=== PATIENT | female | born 1945 | race Hispanic/Latino ===

== ENCOUNTER 2022-05-04 21:01 | Emergency (ER) | payer BC ==
[~2022-05-04] VITALS: Ht 157.5 cm; Wt 68.9 kg
[~2022-05-04 21:01] MED LIST: CLONIDINE PATCH; DIOVAN HCT 3201 EAC1 PO; METOPROLOL SUC100 MG PO; ULTRAM50 MG PO; [UNRECOGNIZED DRUG - OTHER] TD
[2022-05-04] MEDS ORDERED: DIATRIZOATE MEGL/DIATRIZOA SOD 30 ML BTL PO ONE (22:43)
== END 2022-05-04 22:45 | disposition home or self-care (01) ==
LOC: UNMERGE 21:09 → ER 21:09 → MERGE 21:09 → ER 22:45
DX: Z43.1 Encounter for attention to gastrostomy (principal); I10 Essential (primary) hypertension; Z85.89 Personal history of malignant neoplasm of other organs and systems
CPT/HCPCS: 43762; 74018; 99283; Q9963

== ENCOUNTER 2022-05-05 15:04 | Emergency (ER) | payer BC ==
[~2022-05-05] VITALS: Ht 157.5 cm; Wt 68.9 kg
[2022-05-05] MEDS ORDERED: DIATRIZOATE MEGL/DIATRIZOA SOD 30 ML BTL PO ONE (16:02)
[2022-05-05 17:26] VITALS: BP 101/51
== END 2022-05-05 17:27 | disposition home or self-care (01) ==
LOC: MERGE 15:14 → UNMERGE 15:14 → ER 15:14
DX: Z43.1 Encounter for attention to gastrostomy (principal); I10 Essential (primary) hypertension; Z85.89 Personal history of malignant neoplasm of other organs and systems
CPT/HCPCS: 43762; 74018; 99283; Q9963

== ENCOUNTER 2022-06-17 12:55 | Emergency (ER) | payer BC ==
[~2022-06-17] VITALS: Ht 157.5 cm; Wt 68.9 kg
[2022-06-17] MEDS ORDERED: DIATRIZOATE MEGL/DIATRIZOA SOD 30 ML BTL PO ONE ×2 (13:24→13:45)
== END 2022-06-17 14:49 | disposition home or self-care (01) ==
LOC: ER 13:05
DX: Z43.1 Encounter for attention to gastrostomy (principal); I10 Essential (primary) hypertension; Z85.89 Personal history of malignant neoplasm of other organs and systems
CPT/HCPCS: 43762; 74018; 99283; Q9963